=== PATIENT | female | born 1990 | race American Indian/Alaskan Native ===

== ENCOUNTER 2017-06-16 12:01 | Emergency (ER) | payer MEDICAID ==
[2017-06-16 12:01] VITALS: BMI 30.9
[2017-06-16 12:12] VITALS: O2SAT 99
[2017-06-16 13:25] LABS: HCG,QUALITATIVE URINE POSITIVE (NEGATIVE)
[2017-06-16 13:27] LABS: BASO # 0.1 K/uL (0.0-0.2); BASO % 0.8 % (0.0-2.0); EOS # 0.2 K/uL (0.0-0.7); EOS % 2.1 % (0.0-4.0); LYMPH # 2.1 K/uL (1.0-4.3); LYMPH % 27.3 % (20.0-40.0); MEAN CELL VOLUME 87.1 fL (81.0-99.0); MEAN CORPUSCULAR HEMOGLOBIN 29.5 pg (27.0-31.0); MEAN CORPUSCULAR HGB CONC 33.9 g/dL (33.0-37.0); MEAN PLATELET VOLUME 9.3 fL (7.2-11.7); MONO # 0.7 K/uL (0.0-0.8); MONO % 8.5 % (0.0-10.0); NEUT # 4.8 K/uL (1.8-7.0); NEUT % 61.3 % (50.0-75.0); NRBC % 0.1 % (0.0-2.0); RBC 4.28 Mil/uL (3.80-5.20); RED CELL DISTRIBUTION WIDTH 12.9 % (11.5-14.5)
[2017-06-16 13:31] LABS: HEMOGLOBIN 12.6 g/dL (11.0-16.0); WHITE BLOOD COUNT 7.8 K/uL (4.8-10.8)
[2017-06-16 13:34] LABS: PROTHROMBIN TIME 11.5 SECONDS (9.7-12.2)
[2017-06-16 13:47] LABS: ALB/GLOB RATIO 1.1 (1.0-2.1); ALBUMIN 4.1 g/dL (3.5-5.0); ALT/SGPT 12 U/L (9-52); AST/SGOT 18 U/L (14-36); BLOOD UREA NITROGEN 12 mg/dL (7-17); CALCIUM 8.7 mg/dl (8.6-10.4); GFR AFRICAN-AMERICAN > 60; GFR NON-AFRICAN AMERICAN > 60
[2017-06-16 13:55] LABS: SQUAMOUS EPITHIAL 2 /hpf (0-5); URINE BILIRUBIN NEGATIVE (NEGATIVE); URINE BLOOD 3+ (NEGATIVE); URINE CLARITY Hazy (Clear); URINE COLOR Yellow (YELLOW); URINE GLUCOSE (UA) NORMAL (Normal); URINE LEUKOCYTE ESTERASE TRACE Leu/uL (Negative); URINE PROTEIN 1+ mg/dL (NEGATIVE); URINE UROBILINOGEN NORMAL mg/dL (0.2-1.0)
--- NOTE | 2017-06-16 14:23 | US ---
HISTORY: , bleeding COMPARISON: None available. TECHNIQUE: Transabdominal and transvaginal pelvic ultrasound was performed with longitudinal and transverse images submitted for interpretation. FINDINGS: UTERUS: Measures 11.1 x 6.0 x 6.8 cm. Uterus is anteverted with homogeneous myometrium identified throughout. No fibroid or other mass lesion seen. ENDOMETRIUM: Measures 9.7 mm in diameter. Unremarkable. CERVIX: No cervical abnormality identified. RIGHT OVARY: Measures 3.8 x 3.1 x 3.0 cm. No solid mass. Normal flow. LEFT OVARY: Measures 3.3 x 1.7 x 2.9 cm. No solid mass. Normal flow. FREE FLUID: No significant free fluid noted. OTHER FINDINGS: None. IMPRESSION: No visible intrauterine gestation is appreciated nor is an ectopic gestation identified. Accordingly, neither is excluded and the pattern may reflect an early nonvisualized IUP or ectopic and clinical correlation also under follow-up are advised fetus transvaginal sonography is recommended for follow-up in 1 week.
--- NOTE | 2017-06-16 15:01 | C.PDOC ---
History Of Present Illness 27 y/o female, about 6 weeks , presents to the ER complaining of vaginal bleeding x 2 days.Patient states that she has cramping abdominal pain which radiates to the lower back. Patient reports that she went to [facility] yesterday and she had bloodwork and US. However, the doctor did not speak to her regarding her test results. She was discharged with a prescription of Macrobid for UTI and she was told to follow up in 3 days at [facility]. She does not understand the reason they discharged her with medication for UTI. She notes that the pain was really bad last night. She passed lots of clots with "tissues " which she disposed of in the garbage. She still has cramping abdominal pain currently. Time Seen by Provider: 06/16/17 12:31 Chief Complaint (Nursing): Female Genitourinary History Per: Patient History/Exam Limitations: no limitations Onset/Duration Of Symptoms: Days Current Symptoms Are (Timing): Still Present Severity: Moderate Quality Of Discomfort: Cramping Associated Symptoms: denies: Fever, Chills, Nausea, Vomiting, Diarrhea Past Medical History Reviewed: Historical Data, Nursing Documentation, Vital Signs Vital Signs: Last Vital Signs Temp 98.0 F 06/16/17 15:47 Pulse 85 06/16/17 15:47 Resp 16 06/16/17 15:47 BP 160/86 H 06/16/17 15:47 Pulse Ox 100 06/16/17 15:47 - Medical History PMH: No Chronic Diseases Other Surgeries: Hx of surgeries - [facility] Procedures LOW CERVICAL (06/14/14) MANUAL EXPLOR UTERUS P/P (06/14/14) OB TAMPONADE UTERUS/VAG (06/14/14) PACKED CELL TRANSFUSION (06/14/14) Family History: States: No Known Family Hx - Social History Hx Alcohol Use: Yes Hx Substance Use: No - Immunization History Hx Tetanus Toxoid Vaccination: No Hx Influenza Vaccination: No Hx Pneumococcal Vaccination: No Review Of Systems Except As Marked, All Systems Reviewed And Found Negative. Constitutional: Negative for: Fever, Chills Gastrointestinal: Positive for: Abdominal Pain (cramping abdominal pain) Genitourinary: Positive for: Vaginal Bleeding Physical Exam - Physical Exam Appears: Non-toxic, No Acute Distress Skin: Normal Color, Warm Head: Atraumatic, Normacephalic Eye(s): bilateral: Normal Inspection Neck: Supple Chest: Symmetrical Cardiovascular: Rhythm Regular Respiratory: Normal Breath Sounds, No Rales, No Rhonchi, No Wheezing Gastrointestinal/Abdominal: Soft, Tenderness (tenderness in suprapubic region) Extremity: Normal ROM Neurological/Psych: Oriented x3, Normal Speech ED Course And Treatment - Laboratory Results Result Diagrams: 06/16/17 13:16 06/16/17 13:16 O2 Sat by Pulse Oximetry: 99 (RA) Pulse Ox Interpretation: Normal - CT Scan/US US- Transvaginal Other Rad Studies (CT/US): Read By Radiologist, Radiology Report Reviewed CT/US Interpretation: HISTORY: , bleeding. COMPARISON: None available. TECHNIQUE: Transabdominal and transvaginal pelvic ultrasound was performed with longitudinal and transverse images submitted for interpretation. FINDINGS: UTERUS: Measures 11.1 x 6.0 x 6.8 cm. Uterus is anteverted with homogeneous myometrium identified throughout. No fibroid or other mass lesion seen. ENDOMETRIUM: Measures 9.7 mm in diameter. Unremarkable. CERVIX: No cervical abnormality identified. RIGHT OVARY: Measures 3.8 x 3.1 x 3.0 cm. No solid mass. Normal flow. LEFT OVARY: Measures 3.3 x 1.7 x 2.9 cm. No solid mass. Normal flow. FREE FLUID: No significant free fluid noted. OTHER FINDINGS: None. IMPRESSION: No visible intrauterine gestation is appreciated nor is an ectopic gestation identified. Accordingly, neither is excluded and the pattern may reflect an early nonvisualized IUP or ectopic and clinical correlation also under follow-up are advised fetus transvaginal sonography is recommended for follow-up in 1 week. Progress Note: Labs, UA, US- Transvaginal,and HCG Test ordered. Disposition - Disposition Disposition: HOME/ ROUTINE Disposition Time: 15:32 Condition: STABLE Additional Instructions: Follow up with PMD and OBGYN within 2-3 days. Return to ED to repeat betaHCG and Pelvis US in 2-3 days. Return to Ed immediately if feel worse. Instructions: Bleeding With Forms: [employer] (Icelandic) - Clinical Impression Clinical Impression: Vaginal bleeding affecting early - PA / [employer] / Resident Statement MD/DO has reviewed & agrees with the documentation as recorded. - Scribe Statement The provider has reviewed the documentation as recorded by the Janny Villa Provider Attestation All medical record entries made by the Janny were at my direction and personally dictated by me. I have reviewed the chart and agree that the record accurately reflects my personal performance of the history, physical exam, medical decision making, and the department course for this patient. I have also personally directed, reviewed, and agree with the discharge instructions and disposition.
[2017-06-17 11:11] VITALS: BP 160/86; PULSE 85; RESP 16; TEMP 98
== END 2017-06-16 15:52 | disposition home or self-care (01) ==
LOC: C.ER 12:01
DX: O20.9 Hemorrhage in early pregnancy, unspecified (principal)